=== PATIENT | female | born 1955 | race Caucasian/White ===

== ENCOUNTER 2023-01-26 12:14 | Day surgery (SDC) | payer MEDICARE, BC, SELFPAY ==
[2023-01-26] VITALS (7 sets, daily range): BP systolic 100–125; BP diastolic 53–92; PULSE 58–68; RESP 16; TEMP 36.6–36.7; O2SAT 97–99; BMI 28.0
[2023-01-26] MEDS: Lactated Ringers 1,000 ML 15 ML IV (12:50)
--- NOTE | 2023-01-26 13:19 | PCM.HP.STD ---
HPI - General General Date of Admission: 01/26/23 Date of Service: 01/26/23 Chief Complaint: Screening colonoscopy HPI Narrative CATRINA JEFFERY, is a 67 F who presents today for screening colonoscopy. She had a colonoscopy approximately 10 years ago and it was normal. She denies abdominal pain. She denies a cramping. She denies any chest pain or shortness of breath. Overall she is in very good health. All 16 review systems are negative except those pertinent positive mentioned HPI. [facility] Medical History (Updated 01/25/23 @ 08:41 by Radha Aleman) History of edema Leg cramps Lyme disease Non-smoker Post-menopausal Wears glasses Home Medications bromelains 500 mg tablet 500 mg PO DAILY 10/27/22 [History Last Taken Unknown] digestive enzymes 1 cap PO .TIDAC 10/27/22 [History Last Taken Unknown] herbal drugs (Colon Herbal Cleanser capsule) 1 cap PO PRN PRN constipation 10/27/22 [History Last Taken Unknown] lactobacillus combination no.9 4 billion cell capsule (Adult 50 Plus Probiotic) 4,000 mmu cells PO DAILY 10/27/22 [History Last Taken Unknown] magnesium oxide 400 mg PO DAILY 10/27/22 [History Last Taken Unknown] VITAMIN K3 1,090 mg PO DAILY 01/25/23 [History Last Taken Unknown] calcium carbonate 600 mg-vitamin D3 5 mcg (200 unit) tablet 1 tab PO DAILY 01/25/23 [History Last Taken Unknown] cholecalciferol (vitamin D3) 125 mcg (5,000 unit) tablet (Vitamin D3) 5,000 unit PO DAILY 01/25/23 [History Last Taken Unknown] coenzyme Q10-red yeast rice 60 mg-600 mg capsule 1 cap PO DAILY 01/25/23 [History Last Taken Unknown] Allergy/AdvReac Type Severity Reaction Status Date / Time codeine AdvReac Nausea/Vom/ Verified 01/26/23 12:46 Diarrhea Family History (Updated 10/27/22 @ 15:15 by Shanell Faulkner) Father Colon polyps Surgical History (Updated 01/25/23 @ 08:40 by Radha Aleman) History of surgery Hx of colonoscopy Hx of inguinal hernia repair Social History Smoking Status: Never smoker ROS Review of Systems ROS Unobtainable: other Constitutional Constitutional: Denies fatigue, fever(s), poor appetite, weight gain or weight loss ENT HEENT: Denies mouth lesions Cardiovascular Cardiovascular: Denies abdominal bloating, abdominal edema or abdominal pain Respiratory/Chest Respiratory/Chest: Denies change in mental status, change in phlegm color, chest congestion or chest tightness Gastrointestinal Gastrointestinal: Denies belching, bloating, change in bowel habits, change in stool character, chewing difficulty, coffee ground emesis, constipation, cramping, diarrhea, dyspepsia, dysphagia, early satiety, excessive flatus, fecal incontinence, heartburn, hematemesis, hematochezia, hemorrhoids, loose stools, melena, nausea, odynophagia, rectal bleeding, tenesmus, vomiting or weight changes Genitourinary Genitourinary: Denies abdominal discomfort, burning urination or itching Musculoskeletal Musculoskeletal: Reports as per HPI; Denies muscle weakness or myalgias Integumentary Integumentary: Denies jaundice Neurologic Neurologic: Denies lack of coordination or weakness Psychiatric Psychiatric: Denies confusion, depression, memory loss, mood swings, paranoia or suicidal ideation Endocrine Endocrinology: Denies systems reviewed and no addt'l complaints, except as documented Hematologic/Lymphatic Hematologic/Lymphatic: Denies anemia, easy bleeding, easy bruising or lymphadenopathy Allergic/Immunologic Allergic/Immunologic: Denies systems reviewed and no addt'l complaints, except as documented Vital Signs Vital Signs Vital Signs: 01/26/23 12:48 01/26/23 12:48 Temperature 98.0 F Temperature Source Temporal Pulse Rate 68 Respiratory Rate 16 Respiratory Pattern Normal Blood Pressure 125/66 H Blood Pressure Mean 85 Blood Pressure Source Monitor Blood Pressure Position Sitting Blood Pressure Location Left Arm Pulse Ox 97 Oxygen Delivery Method Room Air Weight Weight: 158 lb 11.725 oz Body Mass Index (BMI) 28.0 Physical Exam Const alert General Appearance: cooperative Orientation / Consciousness: oriented to person HEENT hearing grossly normal bilaterally Head and Scalp: normal to inspection Face and Sinus: face symmetric Nose: external nose normal Mouth: oral and palatal mucosa normal Eyes conjunctivae normal General Eye: normal appearance of both eyes Neck full ROM General: normal visual inspection Lymph Lymphatic: no lymphadenopathy noted Chest inspection of chest normal and palpation of chest normal Chest: symmetrical chest wall rise Resp normal respiratory effort Effort and Inspection: able to speak in complete sentences Cardio regular rate GI non-distended Percussion: normal to percussion Rectal Exam: deferred Neuro Speech: speech normal Gait (Neuro): normal gait Assessment & Plan Assessment/Plan (1) Encounter for screening for malignant neoplasm of colon: PLAN: She was explained alternatives, risk, benefits include not withstanding bleeding, infection, sepsis, perforation, need for emergent surgery . She will have an ASA of 2.
--- NOTE | 2023-01-26 14:00 | OP.CCLET_ITS ---
01/26/2023 Lady Wagner Re : Colonoscopy procedure for Jaylene Montgomery Dear Kristy This procedure was performed on Thursday, January 26, 2023. My impressions and recommendations are as follows: Impressions : - The entire examined colon is normal. - The examination was otherwise normal on direct and retroflexion views. - No specimens collected. Recommendations : - Discharge patient to home. - Resume previous diet. - Continue present medications. - Repeat colonoscopy in 10 years for screening purposes. My findings are described in the full procedure note, which is enclosed. If I can be of further assistance, please feel free to contact me at . Sincerely, Yoandy Henson, 01/26/2023 1:59:34 PM This report has been signed electronically.
--- NOTE | 2023-01-26 14:00 | OP.COLON_ITS ---
Patient Name: Jaylene Montgomery Procedure Date: 01/26/2023 1:24 PM Date of : 1955 Age: 67 Procedure: Colonoscopy Indications: Screening for colorectal malignant neoplasm Providers: Yoandy Henson DO Referring MD: Yoandy Henson DO Medicines: Monitored Anesthesia Care Patient Profile: This is a 67 year old female. Refer to note in patient chart for documentation of history and physical. Last Colonoscopy: more than 10 years ago. Complications: No immediate complications. Procedure: Pre-Anesthesia Assessment: - Prior to the procedure, a History and Physical was performed, and patient medications and allergies were reviewed. The risks and benefits of the procedure and the sedation options and risks were discussed with the patient. All questions were answered and informed consent was obtained. Patient identification and proposed procedure were verified by the physician in the pre-procedure area. Mental Status Examination: alert and oriented. Airway Examination: normal oropharyngeal airway and neck mobility. Respiratory Examination: clear to auscultation. CV Examination: normal. Prophylactic Antibiotics: The patient does not require prophylactic antibiotics. Prior Anticoagulants: The patient has taken no previous anticoagulant or antiplatelet agents. After reviewing the risks and benefits, the patient was deemed in satisfactory condition to undergo the procedure. The anesthesia plan was to use monitored anesthesia care (MAC). Immediately prior to administration of medications, the patient was re-assessed for adequacy to receive sedatives. The heart rate, respiratory rate, oxygen saturations, blood pressure, adequacy of pulmonary ventilation, and response to care were monitored throughout the procedure. The physical status of the patient was re-assessed after the procedure. After I obtained informed consent, the scope was passed under direct vision. Throughout the procedure, the patient's blood pressure, pulse, and oxygen saturations were monitored continuously. The pediatric colonoscope was introduced through the anus and advanced to the cecum, identified by appendiceal orifice and ileocecal valve. The colonoscopy was performed without difficulty. The patient tolerated the procedure well. The quality of the bowel preparation was adequate. Scope In: 1:33:26 PM Scope Withdrawal Time 0 hours 7 minutes 23 seconds Scope Out: 1:54:02 PM Total Procedure Duration Time 0 hours 20 minutes 36 seconds Findings: The perianal and digital rectal examinations were normal. The colon (entire examined portion) appeared normal. The exam was otherwise without abnormality on direct and retroflexion views. Impression: - The entire examined colon is normal. - The examination was otherwise normal on direct and retroflexion views. - No specimens collected. Recommendation: - Discharge patient to home. - Resume previous diet. - Continue present medications. - Repeat colonoscopy in 10 years for screening purposes. Procedure Code(s): --- Professional --- G0121, Colorectal cancer screening; colonoscopy on individual not meeting criteria for high risk CPT copyright 2017 [employer]. All rights reserved. The codes documented in this report are preliminary and upon pin machine tender review may be revised to meet current compliance requirements. Yoandy Henson DO 01/26/2023 1:59:34 PM This report has been signed electronically. Number of Addenda: 0 Note Initiated On: 01/26/2023 1:24 PM
== END 2023-01-26 14:48 | disposition home or self-care (01) ==
LOC: EN 12:19 → AC 12:22
PROVIDERS: Referring Provider Internal Medicine Gastroenterology; Visit Provider Internal Medicine Gastroenterology
PROC: 0DJD8ZZ Inspection of Lower Intestinal Tract, Via Natural or Artificial Opening Endoscopic (ICD-10-PCS; CPT 45378; principal; 2023-01-26 13:10)
DX: Z12.11 Encounter for screening for malignant neoplasm of colon (principal)
CPT/HCPCS: G0121; J7120; J2405